=== PATIENT | male | born 1985 | race Caucasian/White ===

== ENCOUNTER 2016-06-29 10:14 | Emergency (ER) | payer BC ==
[2016-06-29 11:01] VITALS: BP 124/78
--- NOTE | 2016-06-29 12:35 | UC ---
Dental HPI - HPI Summary HPI Summary: RIGHT TOOTH PAIN (#6, #7) SINCE YESTERDAY, WITH RIGHT FACIAL SWELLING. NO FEVER. NO TRAUMA. - History of Current Complaint Chief Complaint: UCDentalProblem Stated Complaint: TOOTH ACHE Time Seen by Provider: 06/29/16 10:52 Hx Obtained From: Patient, Family/Bulk Station Agent Onset/Duration: Gradual Onset, Lasting Days, Still Present Severity: Moderate Pain Intensity: 6 Pain Scale Used: 0-10 Numeric Aggravating: Chewing Alleviating: OTC Meds Related History: Swelling - Allergies/Home Medications Allergies/Adverse Reactions: Allergies Allergy/AdvReac Type Severity Reaction Status Date / Time No Known Allergies Allergy Verified 11/15/12 19:47 Home Medications: Home Medications Acetaminophen TAB* [Tylenol TAB*] 2 tab PO PRN 06/29/16 [History] Ibuprofen TAB* [Advil TAB*] 2 tab PO PRN 06/29/16 [History] PMH/Surg Hx/FS Hx/Imm Hx Previously Healthy: Yes - Surgical History Surgical History: Yes Surgery Procedure, Year, and Place: WISDOM TEETH - Family History Known Family History: Positive: Respiratory Disease - TOBACCO ABUSE - Social History Occupation: Employed Full-time Lives: With Family Alcohol Use: Occasionally Substance Use Type: None Smoking Status (MU): Heavy Every Day Tobacco Smoker Amount Used/How Often: 1 PPD Cessation Counseling: Counseled 3+Min - 10 Min - Immunization History Most Recent Tetanus Shot: 1 yr ago Review of Systems Constitutional: Negative Skin: Negative Eyes: Negative ENT: Dental Pain Respiratory: Negative Cardiovascular: Negative Gastrointestinal: Negative Genitourinary: Negative Motor: Negative Neurovascular: Negative Musculoskeletal: Negative Neurological: Negative Psychological: Negative All Other Systems Reviewed And Are Negative: Yes Physical Exam Triage Information Reviewed: Yes Appearance: Well-Appearing, No Pain Distress, Well-Nourished Vital Signs: Initial Vital Signs Temp 98.2 F 06/29/16 10:53 Pulse 63 06/29/16 10:53 Resp 18 06/29/16 10:53 BP 124/78 06/29/16 10:53 Pulse Ox 100 06/29/16 10:53 Eye Exam: Normal ENT Exam: Normal ENT: Positive: Normal ENT inspection, Hearing grossly normal, Pharynx normal, TMs normal Dental: Positive: Cellulitis @ - #6, #7 Neck exam: Normal Neck: Positive: Supple, Nontender, No Lymphadenopathy Respiratory Exam: Normal Respiratory: Positive: Chest non-tender, Lungs clear, Normal breath sounds, No respiratory distress, No accessory muscle use Cardiovascular Exam: Normal Cardiovascular: Positive: RRR, No Murmur, Pulses Normal Abdominal Exam: Normal Abdomen Description: Positive: Nontender, No Organomegaly Musculoskeletal Exam: Normal Neurological Exam: Normal Psychological Exam: Normal Psychological: Positive: Normal Response To Family Skin Exam: Normal Dental Complaint Course/Dx - Differential Dx/Diagnosis Differential Diagnosis/Dx: Dental Abscess, Dental Caries, Fractured Tooth Provider Diagnoses: ODONTOGENTIC PAIN #6, #7. GINGIVAL CELLULITIS #6, #7 Discharge - Discharge Plan Condition: Stable Disposition: HOME Prescriptions: Amoxicillin/Clavulanate TAB* [Augmentin TAB 875*] 875 mg PO BID #20 tab traMADol TAB* [Ultram*] 50 mg PO Q12H PRN #8 tab MDD two tabs PRN Reason: Pain Patient Education Materials: Dental Abscess (ED), Toothache (ED) Referrals: AMILCAR Zayas [Primary Care Provider] - [facility]: 1 - TENDER HERE, WITH CORRESPONDING GINGIVAL CELLULITIS
== END 2016-06-29 11:58 | disposition home or self-care (01) ==
LOC: UCEAST 10:14
DX: K08.89 Other specified disorders of teeth and supporting structures (principal); K12.2 Cellulitis and abscess of mouth; F17.210 Nicotine dependence, cigarettes, uncomplicated
CPT/HCPCS: 99201; G0463